=== PATIENT | female | born 1980 | race American Indian/Alaskan Native ===

== ENCOUNTER 2021-02-16 15:33 | Emergency (ER) | payer SELFPAY ==
[2021-02-16 16:52] VITALS: BP 156/108
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
--- NOTE | 2021-02-16 17:41 | XRay Report ---
LEFT LITTLE FINGER 3 VIEWS INDICATION / CLINICAL INFORMATION: 5th FInger injury. COMPARISON: None available. FINDINGS: Tiny 3 mm ossific density is seen along the volar radial aspect of little finger PIP joint with moder ate periarticular soft tissue swelling likely secondary to avulsion fracture. No other fracture of le ft little finger or hand. Signer Name: Je Fink MD Signed: 02/16/2021 5:36 PM Workstation Name: [id number]
== END 2021-02-17 | disposition home or self-care (01) ==
LOC: ED 15:33
DX: S62.627A Displaced fracture of middle phalanx of left little finger, initial encounter for closed fracture (principal); T14.8XXA Other injury of unspecified body region, initial encounter; I10 Essential (primary) hypertension; Z79.899 Other long term (current) drug therapy; Y04.8XXA Assault by other bodily force, initial encounter; Y93.89 Activity, other specified; Y92.89 Other specified places as the place of occurrence of the external cause; Y99.8 Other external cause status